=== PATIENT | female | born 1965 | race Caucasian/White ===

== ENCOUNTER → 2019-03-07 | Outpatient (CLI) | payer OTHER | END | disposition home or self-care (01) | LOC: CFH 15:37 | PROVIDERS: ATTEND Internal Medicine | DX: R07.89 Other chest pain (principal) | CPT/HCPCS: 71046 ==

== ENCOUNTER 2019-12-05 11:12 | Inpatient (IN) | payer OTHER ==
[~2019-12-05] VITALS: Ht 165.1 cm; Wt 61.7 kg
[2019-12-05] MEDS ORDERED: METOCLOPRAMIDE 5 MG/ML, 2ML ONE (11:58)
[2019-12-05] MEDS ORDERED: DIPHENHYDRAMINE 50 MG/ML, 1ML ONE (11:58)
[2019-12-05] MEDS ORDERED: DIPHENHYDRAMINE 50 MG/ML, 1ML IVPush ONE (12:00)
[2019-12-05] MEDS ORDERED: SODIUM CHLORIDE FLUSH 10ML SYR IVF ONE (12:00)
[2019-12-05] MEDS ORDERED: SODIUM CHLORIDE 0.9% 1,000ML IVBOLUS ONE (12:00)
[2019-12-05] MEDS ORDERED: METOCLOPRAMIDE 5 MG/ML, 2ML IVPush ONE (12:00)
[2019-12-05 12:28] LABS: INTERNATIONAL NORMALIZED RATIO 0.93 (0.93-1.1); PROTHROMBIN TIME 9.8 Seconds (9.6-11.5)
[2019-12-05 12:30] LABS: ALANINE AMINOTRANSFERASE 19 U/L (12-78); ALBUMIN 3.6 g/dL (3.4-5.0); ANION GAP 5 mmol/L (5-15); CALCIUM 8.2 mg/dL (8.5-10.1); CHLORIDE 108 mmol/L (98-107); CREATININE 1.08 mg/dL (0.55-1.02)
[2019-12-05 12:32] LABS: ALKALINE PHOSPHATASE 51 U/L (45-117); BILIRUBIN,TOTAL 0.5 mg/dL (0.2-1.0)
[2019-12-05 12:33] LABS: MICROSCOPIC INDICATED
[2019-12-05 12:34] LABS: CULTURE INDICATED? YES
[2019-12-05 12:40] LABS: SALICYLATE LEVEL < 1.7 mg/dL (2.8-20.0)
[2019-12-05 12:48] LABS: MEAN CORPUSCULAR HEMOGLOBIN 34.4 pg (27.0-34.8); MEAN CORPUSCULAR HGB CONC 34.1 g/dL (32.4-35.8); MEAN CORPUSCULAR VOLUME 100.9 fL (80-100); MEAN PLATELET VOLUME 7.9 fL (7.4-10.4); PLATELET COUNT 129 x10^3/uL (130-400); RED BLOOD COUNT 3.92 x10^6/uL (3.82-5.3); RED CELL DISTRIBUTION WIDTH 12.2 % (9.6-15.2)
--- NOTE | 2019-12-05 12:49 | NUR ---
lab called critical wbc 1.1 provider made aware.
[2019-12-05 12:52] LABS: HEMOGRAM NOTE RECHECKED; MD YES
[2019-12-05 12:57] LABS: <RBC MORPHOLOGY> NORMAL; BASOS#(MANUAL) 0.01 x10^3/uL (0-0.1); BASOS% (MANUAL) 1 % (0-1); LYMPH#(MANUAL) 0.47 x10^3/uL (1-3.4); LYMPHS% (MANUAL) 43 % (22-44); MONOS#(MANUAL) 0.02 x10^3/uL (0.3-2.7); MONOS% (MANUAL) 2 % (2-9); SEG#(MANUAL) 0.59 x10^3/uL (1.8-6.8); SEGS% (MANUAL) 54 % (42-75)
[2019-12-05 12:58] LABS: <PLATELET ESTIMATE> DECREASED; <PLT MORPHOLOGY> NORMAL PLT MORPH
--- NOTE | 2019-12-05 13:07 | NUR ---
dr guallpa spoke with dr henderson
[2019-12-05] MEDS ORDERED: SYNTHROID PO (13:42)
[2019-12-05] MEDS ORDERED: MOTEGRITY PO (13:42)
[2019-12-05] MEDS ORDERED: ESTROGEN REPLACEMENT PO (13:42)
[2019-12-05] MEDS ORDERED: PRUC2TAB PO (13:43)
--- NOTE | 2019-12-05 13:43 | NUR ---
TASK RN NOTE: MED REC COMPLETED, BP AND SPO2 MONITORS IN PLACE. PT A&O, RESPS EVEN AND UNLABORED. HOSPITALIST POP AT BEDSIDE. NEUTROPENIC PRECAUTIONS IN PLACE.
[2019-12-05] MEDS: CEFEPIME 2 GM in DEXTROSE 5% 100 ML IV SCH ×2 (15:37→23:29)
--- NOTE | 2019-12-05 16:55 | NUR ---
RECEIVED REPORT FROM NEENA PURDY. CARE ASSUMED AT THIS TIME. PT RESTING IN POSITION OF COMFORT ON HOSPTIAL BED. TALKING ON CELL PHONE. VSS. PULSE OX 96%. DENIES ANY PAIN AND NEED TO USE RESTROOM. CALL LIGHT IN REACH. FALL PRECAUTIONS IN PLACE.
--- NOTE | 2019-12-05 17:05 | NUR ---
REPORT AND CARE TO BREAK GURWINDER HEBERT AT THIS TIME
--- NOTE | 2019-12-05 17:07 | NUR ---
TASK RN: PT TAKEN TO INPATIENT ROOM BY GEOPHYSICAL PROSPECTING SURVEYOR.
[2019-12-05] MEDS ORDERED: LEVO75TA PO (17:22)
[2019-12-05 18:33] VITALS: BP 118/60
[2019-12-05] MEDS: ACETAMINOPHEN 325 MG TABLET PO PRN (18:35)
[2019-12-06 02:00] VITALS: BP 103/70
[2019-12-06] MEDS: ACETAMINOPHEN 325 MG TABLET PO PRN ×3 (02:01→17:22)
[2019-12-06 06:02] LABS: MEAN CORPUSCULAR HEMOGLOBIN 34.4 pg (27.0-34.8); MEAN CORPUSCULAR HGB CONC 34.3 g/dL (32.4-35.8); MEAN CORPUSCULAR VOLUME 100.4 fL (80-100); PLATELET COUNT 87 x10^3/uL (130-400); RED BLOOD COUNT 3.16 x10^6/uL (3.82-5.3); RED CELL DISTRIBUTION WIDTH 12.4 % (9.6-15.2)
[2019-12-06] MEDS: LEVOTHYROXINE 75 MCG TABLET PO SCH (06:08)
[2019-12-06 06:14] LABS: ALBUMIN 2.8 g/dL (3.4-5.0); ANION GAP 6 mmol/L (5-15); CALCIUM 7.9 mg/dL (8.5-10.1); CHLORIDE 113 mmol/L (98-107)
[2019-12-06 06:17] LABS: ALANINE AMINOTRANSFERASE 19 U/L (12-78); ALKALINE PHOSPHATASE 38 U/L (45-117); BILIRUBIN,TOTAL 0.7 mg/dL (0.2-1.0); CREATININE 0.76 mg/dL (0.55-1.02); TOTAL PROTEIN 6.5 g/dL (6.4-8.2)
[2019-12-06 06:21] LABS: MD YES
[2019-12-06 06:27] LABS: BAND#(MANUAL) 0.03 x10^3/uL; BANDS%(MANUAL) 3 % (0-7); BASOS#(MANUAL) 0.01 x10^3/uL (0-0.1); BASOS% (MANUAL) 1 % (0-1); EOS#(MANUAL) 0.02 x10^3/uL (0.0-0.4); EOS% (MANUAL) 2 % (1-7); LYMPH#(MANUAL) 0.59 x10^3/uL (1-3.4); LYMPHS% (MANUAL) 66 % (22-44); MONOS#(MANUAL) 0.02 x10^3/uL (0.3-2.7); MONOS% (MANUAL) 2 % (2-9); SEG#(MANUAL) 0.23 x10^3/uL (1.8-6.8); SEGS% (MANUAL) 26 % (42-75)
[2019-12-06 06:28] LABS: <PLATELET ESTIMATE> DECREASED; <PLT MORPHOLOGY> NORMAL PLT MORPH
[2019-12-06 06:30] LABS: POLYCHROMASIA 1+
[2019-12-06 07:17] VITALS: BP 101/58
[2019-12-06] MEDS: CEFEPIME 2 GM in DEXTROSE 5% 100 ML IV SCH (08:04)
[2019-12-06] MEDS ORDERED: MORPHINE SULFATE 4 MG/ML, 1ML ONE (08:13)
[2019-12-06] MEDS ORDERED: MORPHINE SULFATE 4 MG/ML, 1ML IVPush ONE (08:30)
[2019-12-06] MEDS ORDERED: VANCOMYCIN PER PHARMACY MC PRN (08:30)
[2019-12-06] MEDS ORDERED: CEFTRIAXONE PMX 2GM/50ML 50 ML IV SCH (09:00)
[2019-12-06] MEDS ORDERED: PHARMACOKINETIC MONITORING MC PRN (09:00)
[2019-12-06] MEDS ORDERED: PHARMACOKINETIC CONSULTATION MC ONE (09:00)
[2019-12-06] MEDS ORDERED: VANCOMYCIN 1,100 MG in SODIUM CHLORIDE 0.9% 250 ML IV SCH (10:00)
[2019-12-06] MEDS: AMPICILLIN 2 GM in SODIUM CHLORIDE 0.9% 100 ML IV SCH ×2 (11:30→16:46)
[2019-12-06] MEDS ORDERED: MIDAZOLAM 1 MG/ML, 5ML ONE (15:05)
[2019-12-06] MEDS ORDERED: FLUMAZENIL 0.1 MG/1 ML, 5ML ONE (15:05)
[2019-12-06] MEDS ORDERED: NALOXONE 1 MG/ML, 2ML ONE (15:05)
[2019-12-06] MEDS ORDERED: FENTANYL PF 100 MCG/2ML ONE ×2 (15:05)
[2019-12-06] MEDS ORDERED: LIDOCAINE 1%, 20ML ONE (15:16)
[2019-12-06] MEDS ORDERED: GADOTERATE 7.5 MMOL/15 ML SYR ONE (16:00)
[2019-12-06 16:29] VITALS: BP 99/66
[2019-12-06] MEDS ORDERED: MORPHINE SULFATE 4 MG/ML, 1ML IVPush PRN (17:30)
[2019-12-06 18:42] VITALS: BP 86/54
[2019-12-06 19:45] LABS: ANION GAP 7 mmol/L (5-15); CALCIUM 7.6 mg/dL (8.5-10.1); CHLORIDE 110 mmol/L (98-107); CREATININE 1.03 mg/dL (0.55-1.02)
[2019-12-06] MEDS: MEROPENEM 1 GM in SODIUM CHLORIDE 0.9% 100 ML IV SCH (20:46)
[2019-12-06] MEDS ORDERED: POTASSIUM CHLORIDE 20 MEQ in LACTATED RINGERS 1,000 ML IV ONE (21:30)
[2019-12-06] MEDS: MICAFUNGIN 100 MG in SODIUM CHLORIDE 0.9% 100 ML IV SCH (22:01)
[2019-12-06 22:59] LABS: RAPID INFLUENZA A Negative (Negative); RAPID INFLUENZA B Negative (Negative)
[2019-12-06 23:06] VITALS: BP 99/62
[2019-12-07 02:32] VITALS: BP 100/71
[2019-12-07] MEDS: ACETAMINOPHEN 325 MG TABLET PO PRN ×3 (02:32→18:52)
[2019-12-07] MEDS: MEROPENEM 1 GM in SODIUM CHLORIDE 0.9% 100 ML IV SCH ×3 (05:30→20:37)
[2019-12-07] MEDS: LEVOTHYROXINE 75 MCG TABLET PO SCH (05:34)
[2019-12-07 06:46] VITALS: BP 92/53
[2019-12-07 07:52] LABS: ALANINE AMINOTRANSFERASE 13 U/L (12-78); ALBUMIN 2.5 g/dL (3.4-5.0); ANION GAP 7 mmol/L (5-15); CALCIUM 7.6 mg/dL (8.5-10.1); CHLORIDE 112 mmol/L (98-107)
[2019-12-07 07:55] LABS: ALKALINE PHOSPHATASE 37 U/L (45-117); BILIRUBIN,TOTAL 0.4 mg/dL (0.2-1.0); CREATININE 0.82 mg/dL (0.55-1.02)
[2019-12-07 08:23] LABS: MEAN CORPUSCULAR HEMOGLOBIN 34.4 pg (27.0-34.8); MEAN CORPUSCULAR HGB CONC 33.9 g/dL (32.4-35.8); MEAN CORPUSCULAR VOLUME 101.5 fL (80-100); MEAN PLATELET VOLUME 8.2 fL (7.4-10.4); PLATELET COUNT 94 x10^3/uL (130-400); RED BLOOD COUNT 3.12 x10^6/uL (3.82-5.3); RED CELL DISTRIBUTION WIDTH 12.5 % (9.6-15.2)
[2019-12-07 08:28] LABS: MD YES
[2019-12-07 08:34] LABS: BAND#(MANUAL) 0.02 x10^3/uL; BANDS%(MANUAL) 2 % (0-7); MONOS#(MANUAL) 0.02 x10^3/uL (0.3-2.7); MONOS% (MANUAL) 2 % (2-9); SEG#(MANUAL) 0.17 x10^3/uL (1.8-6.8); SEGS% (MANUAL) 21 % (42-75)
[2019-12-07 08:35] LABS: LYMPH#(MANUAL) 0.57 x10^3/uL (1-3.4); LYMPHS% (MANUAL) 71 % (22-44); REACTIVE LYMPHS # (MANUAL) 0.03 x10^3/uL (0-0); REACTIVE LYMPHS % (MANUAL) 4 % (0-0)
[2019-12-07 08:36] LABS: <PLATELET ESTIMATE> DECREASED; <PLT MORPHOLOGY> NORMAL PLT MORPH; <RBC MORPHOLOGY> NORMAL
[2019-12-07 13:03] VITALS: BP 91/58
[2019-12-07] MEDS ORDERED: BISACODYL 5 MG EC TABLET PO PRN (15:00)
[2019-12-07 18:33] VITALS: BP 111/66
[2019-12-07] MEDS: MICAFUNGIN 100 MG in SODIUM CHLORIDE 0.9% 100 ML IV SCH (21:14)
[2019-12-08 00:10] VITALS: BP 97/63
[2019-12-08] MEDS: MEROPENEM 1 GM in SODIUM CHLORIDE 0.9% 100 ML IV SCH (04:50)
[2019-12-08] MEDS: LEVOTHYROXINE 75 MCG TABLET PO SCH (05:43)
[2019-12-08 06:47] VITALS: BP 101/66
[2019-12-08 08:59] LABS: MEAN CORPUSCULAR HEMOGLOBIN 34.8 pg (27.0-34.8); MEAN CORPUSCULAR HGB CONC 34.4 g/dL (32.4-35.8); MEAN CORPUSCULAR VOLUME 101.1 fL (80-100); MEAN PLATELET VOLUME 7.5 fL (7.4-10.4); PLATELET COUNT 105 x10^3/uL (130-400); RED BLOOD COUNT 3.17 x10^6/uL (3.82-5.3); RED CELL DISTRIBUTION WIDTH 12.8 % (9.6-15.2)
[2019-12-08 09:05] LABS: MD YES
[2019-12-08 09:09] LABS: ANION GAP 7 mmol/L (5-15); CALCIUM 7.8 mg/dL (8.5-10.1); CHLORIDE 107 mmol/L (98-107); CREATININE 0.97 mg/dL (0.55-1.02)
[2019-12-08 09:20] LABS: BAND#(MANUAL) 0.02 x10^3/uL; BANDS%(MANUAL) 2 % (0-7); LYMPH#(MANUAL) 0.53 x10^3/uL (1-3.4); LYMPHS% (MANUAL) 66 % (22-44); MONOS#(MANUAL) 0.02 x10^3/uL (0.3-2.7); MONOS% (MANUAL) 2 % (2-9); SEG#(MANUAL) 0.24 x10^3/uL (1.8-6.8); SEGS% (MANUAL) 30 % (42-75)
[2019-12-08 09:21] LABS: <PLATELET ESTIMATE> DECREASED; <PLT MORPHOLOGY> NORMAL PLT MORPH; <RBC MORPHOLOGY> NORMAL
[2019-12-08] MEDS ORDERED: SODIUM CHLORIDE NASAL SPRAY 45ML BOTTLE NAS PRN (11:30)
[2019-12-08] MEDS: LEVOFLOXACIN 750 MG TABLET PO SCH (11:33)
[2019-12-08] MEDS: ACETAMINOPHEN 325 MG TABLET PO PRN (11:34)
[2019-12-08 13:41] VITALS: BP_SYST 85; BP_SYST 86; BP_DIAS 57; BP_DIAS 58
[2019-12-08 14:21] VITALS: BP 92/60
[2019-12-08] MEDS: ONDANSETRON 2MG/ML, 2ML IVPush PRN (14:30)
[2019-12-08] MEDS: CEFEPIME 2 GM in DEXTROSE 5% 100 ML IV SCH (16:59)
[2019-12-08 18:39] VITALS: BP 98/64
[2019-12-08] MEDS: MICAFUNGIN 100 MG in SODIUM CHLORIDE 0.9% 100 ML IV SCH (20:53)
[2019-12-09] MEDS: CEFEPIME 2 GM in DEXTROSE 5% 100 ML IV SCH (00:05)
[2019-12-09] MEDS: ACETAMINOPHEN 325 MG TABLET PO PRN ×2 (00:14→17:48)
[2019-12-09 00:15] VITALS: BP 94/60
[2019-12-09 04:49] LABS: MEAN CORPUSCULAR HEMOGLOBIN 34.3 pg (27.0-34.8); MEAN CORPUSCULAR HGB CONC 33.7 g/dL (32.4-35.8); MEAN CORPUSCULAR VOLUME 101.7 fL (80-100); PLATELET COUNT 96 x10^3/uL (130-400); RED CELL DISTRIBUTION WIDTH 12.2 % (9.6-15.2)
[2019-12-09 04:54] LABS: CHLORIDE 110 mmol/L (98-107)
[2019-12-09 04:59] LABS: MD YES
[2019-12-09 05:01] LABS: ALANINE AMINOTRANSFERASE 36 U/L (12-78); ALBUMIN 2.7 g/dL (3.4-5.0); ALKALINE PHOSPHATASE 36 U/L (45-117); ANION GAP 4 mmol/L (5-15); BILIRUBIN,TOTAL 0.5 mg/dL (0.2-1.0); CALCIUM 8.1 mg/dL (8.5-10.1); CREATININE 0.75 mg/dL (0.55-1.02); TOTAL PROTEIN 6.6 g/dL (6.4-8.2)
[2019-12-09 05:05] LABS: BAND#(MANUAL) 0.01 x10^3/uL; BANDS%(MANUAL) 1 % (0-7); EOS#(MANUAL) 0.01 x10^3/uL (0.0-0.4); EOS% (MANUAL) 1 % (1-7); LYMPH#(MANUAL) 0.77 x10^3/uL (1-3.4); LYMPHS% (MANUAL) 77 % (22-44); MONOS#(MANUAL) 0.04 x10^3/uL (0.3-2.7); MONOS% (MANUAL) 4 % (2-9); SEG#(MANUAL) 0.17 x10^3/uL (1.8-6.8); SEGS% (MANUAL) 17 % (42-75)
[2019-12-09 05:11] LABS: <PLATELET ESTIMATE> DECREASED; <PLT MORPHOLOGY> NORMAL PLT MORPH
[2019-12-09] MEDS: LEVOTHYROXINE 75 MCG TABLET PO SCH (06:12)
[2019-12-09 07:24] VITALS: BP 93/60
[2019-12-09 08:09] LABS: ABSOLUTE RETICS # 0.025 x10^6/uL (0.5-2.5); RED BLOOD COUNT 3.11 x10^6/uL (3.82-5.3); RETICULOCYTE COUNT % 0.79 % (0.5-1.5)
[2019-12-09] MEDS: LEVOFLOXACIN 750 MG TABLET PO SCH (09:45)
[2019-12-09] MEDS: TBO-FILGRASTIM 480 MCG/0.8 ML SQ SCH (10:07)
[2019-12-09 12:41] VITALS: BP 96/60
[2019-12-09] MEDS: ONDANSETRON 2MG/ML, 2ML IVPush PRN (15:12)
[2019-12-09 19:31] VITALS: BP 90/55
[2019-12-10 00:15] VITALS: BP 95/60
[2019-12-10] MEDS: ACETAMINOPHEN 325 MG TABLET PO PRN (00:22)
[2019-12-10] MEDS: LEVOTHYROXINE 75 MCG TABLET PO SCH (06:19)
[2019-12-10 07:15] VITALS: BP 94/61
[2019-12-10 07:43] LABS: MEAN CORPUSCULAR HEMOGLOBIN 33.8 pg (27.0-34.8); MEAN CORPUSCULAR HGB CONC 33.4 g/dL (32.4-35.8); MEAN CORPUSCULAR VOLUME 101.3 fL (80-100); MEAN PLATELET VOLUME 7.8 fL (7.4-10.4); PLATELET COUNT 101 x10^3/uL (130-400); RED BLOOD COUNT 3.26 x10^6/uL (3.82-5.3); RED CELL DISTRIBUTION WIDTH 12.3 % (9.6-15.2)
[2019-12-10 09:11] LABS: MD YES
[2019-12-10 09:13] LABS: BAND#(MANUAL) 0.36 x10^3/uL; BANDS%(MANUAL) 12 % (0-7); LYMPH#(MANUAL) 0.66 x10^3/uL (1-3.4); LYMPHS% (MANUAL) 22 % (22-44); METAMYELOCYTES# (MANUAL) 0.03 x10^3/uL (0-0); METAMYELOCYTES% (MANUAL) 1 % (0-1); MONOS#(MANUAL) 0.12 x10^3/uL (0.3-2.7); MONOS% (MANUAL) 4 % (2-9); SEG#(MANUAL) 1.83 x10^3/uL (1.8-6.8); SEGS% (MANUAL) 61 % (42-75)
[2019-12-10] MEDS: LEVOFLOXACIN 750 MG TABLET PO SCH (09:13)
[2019-12-10 09:14] LABS: <PLATELET ESTIMATE> DECREASED; <PLT MORPHOLOGY> NORMAL PLT MORPH
[2019-12-10] MEDS: TBO-FILGRASTIM 480 MCG/0.8 ML SQ SCH (10:23)
== END 2019-12-10 13:15 | disposition home or self-care (01) | DRG 841 ==
LOC: ED 13:19 → EDIP 13:20 → ED 13:39 → 4NW 17:18 → DCLOUNGE 12-10 13:07
PROVIDERS: ADMIT Internal Medicine; ATTEND Internal Medicine
PROC: 07DR3ZX Extraction of Iliac Bone Marrow, Percutaneous Approach, Diagnostic (ICD-10-PCS; principal; 2019-12-06)
DX: C91.Z0 Other lymphoid leukemia not having achieved remission (principal); E87.2 Acidosis; D70.9 Neutropenia, unspecified; R50.81 Fever presenting with conditions classified elsewhere; D69.6 Thrombocytopenia, unspecified; B19.20 Unspecified viral hepatitis C without hepatic coma; E03.9 Hypothyroidism, unspecified; E87.8 Other disorders of electrolyte and fluid balance, not elsewhere classified; K59.00 Constipation, unspecified; Z90.710 Acquired absence of both cervix and uterus; Z90.49 Acquired absence of other specified parts of digestive tract; Z87.891 Personal history of nicotine dependence; Z80.0 Family history of malignant neoplasm of digestive organs
CPT/HCPCS: 36415; 84145; 87400; 96360; 99285; J3490; 38222; 70450; 70553; 71045; 77012; 80048; 80053; 80307; 81001; 82607; 82728; 83540; 83550; 83605; 83735; 84100; 84443; 85025; 85045; 85060; 85097; 85384; 85610; 85730; 86038; 86430; 87040; 87086; 87497; 87633; 88237; 88264; 88280; 88305; 88311; 88313; 93005; 93306; 93356; 99156; 99157; G0378; J0290; J0696; J2185; J2248; J2250; J2405; J3010; J3370; J3480; A9575; J1200; J1447; J2270; J2310; J2765; J7030; J7050; J7120

== ENCOUNTER → 2020-09-10 | Outpatient (CLI) | payer OTHER ==
[~2020-09-10] MED LIST: ESTROGEN REPLACEMENT PO; LEVO75TA PO; MOTEGRITY PO; PRUC2TAB PO; SYNTHROID PO
== END | disposition home or self-care (01) ==
LOC: CFH 09:06
PROVIDERS: ATTEND Internal Medicine
DX: Z12.31 Encounter for screening mammogram for malignant neoplasm of breast (principal)
CPT/HCPCS: 77063; 77067